=== PATIENT | male | born 1985 | race African-American/Black ===

== ENCOUNTER 2019-05-04 10:52 | Inpatient (IN) | payer OTHER ==
[2019-05-04 12:00] VITALS: BMI 19.3
--- NOTE | 2019-05-04 12:22 | HP ---
COWS - Scale Resting Pulse: 0= DC 80 or Below Sweatin= Chills/Flushing Restless Observation: 1= Difficult to Sit Still Pupil Size: 1= Pupils >than Normal Bone or Joint Aches: 2= Severe Diffuse Aches Runny Nose/ Eye Tearin= Runny Nose/Eyes GI Upset > 30mins: 2= Nausea/Diarrhea Tremor Observation: 2= Slight Tremor Visible Yawning Observation: 1= 1-2x During Session Anxiety or Irritability: 1=Feels Anxious/Irritable Goose Flesh Skin: 3=Piloerection COWS Score: 16 CIWA Score - Admission Criteria [facility]ASAS Guidelines: Admission for Medically Managed Detox: Requires at least one of the followin. CIWA greater than 12 2. Seizures within the past 24 hours 3. Delirium tremens within the past 24 hours 4. Hallucinations within the past 24 hours 5. Acute intervention needed for co occurring medical disorder 6. Acute intervention needed for co occurring psychiatric disorder 7. Severe withdrawal that cannot be handled at a lower level of care (continued vomiting, continued diarrhea, abnormal vital signs) requiring intravenous medication and/or fluids 8. Admission ROS [facility] Chief Complaint: I dont want to use heroin anymore. Allergies/Adverse Reactions: Allergies Allergy/AdvReac Type Severity Reaction Status Date / Time No Known Allergies Allergy Verified 05/04/19 11:45 History of Present Illness: 34 year old male with 5 years dependence on heroin presents for detox. His last treatment was at [facility] in 2019. He denies ever overdosing. Exam Limitations: No Limitations - Ebola screening Have you traveled outside of the country in the last 21 days: No (N) Have you had contact with anyone from an Ebola affected area: No Have you been sick,other than usual withdrawal symptoms: No Do you have a fever: No - Review of Systems Constitutional: Chills, Loss of Appetite, Changes in sleep EENT: reports: Blurred Vision, Nose Congestion Respiratory: reports: No Symptoms reported Cardiac: reports: Lightheadedness GI: reports: Poor Appetite, Poor Fluid Intake, Abdominal cramping : reports: No Symptoms Reported Musculoskeletal: reports: Back Pain, Joint Pain, Muscle Pain, Muscle Weakness Integumentary: reports: Flushing Neuro: reports: Headache, Tremors Endocrine: reports: No Symptoms Reported Hematology: reports: No Symptoms Reported Psychiatric: reports: Anxious, Depressed Other Systems: Reviewed and Negative Patient History - Patient Medical History Hx Anemia: No Hx Asthma: No Hx Chronic Obstructive Pulmonary Disease (COPD): No Hx Cancer: No Hx Cardiac Disorders: No Hx Congestive Heart Failure: No Hx Hypertension: No Hx Hypercholesterolemia: No Hx Pacemaker: No HX Cerebrovascular Accident: No Hx Seizures: No Hx Dementia: No Hx Diabetes: No Hx Gastrointestinal Disorders: No Hx Liver Disease: No Hx Genitourinary Disorders: No Hx Sexually Transmitted Disorders: No Hx Renal Disease (ESRD): No Hx Thyroid Disease: No Hx Human Immunodeficiency Virus (HIV): No Hx Depression: Yes Hx Suicide Attempt: Yes Hx Bipolar Disorder: No Hx Schizophrenia: No - Patient Surgical History Past Surgical History: No - PPD History Previous Implant?: No Documented Results: Negative w/o proof Implanted On Prior [facility] Admission?: No PPD to be Administered?: Yes - Smoking Cessation Smoking history: Current every day smoker Have you smoked in the past 12 months: Yes Aproximately how many cigarettes per day: 10 Hx Chewing Tobacco Use: No Initiated information on smoking cessation: Yes 'Breaking Loose' booklet given: 05/04/19 - Substances abused Heroin Substance route: Inhalation Frequency: Daily Amount used: 4 bags Age of first use: 29 Date of last use: 05/03/19 Crack Substance route: Smoking Amount used: 5 dimes Age of first use: 29 Date of last use: 05/03/19 Admission Physical Exam [facility]HS - Vital Signs Vital Signs: Vital Signs - 24 hr 05/04/19 11:45 Temperature 97.6 F Pulse Rate 80 Respiratory 16 Rate Blood Pressure 113/65 - Physical General Appearance: Yes: Other (sleeping most of the time) HEENTM: Yes: Normocephalic, AVTAR, Pharynx Normal, Nasal Congestion Respiratory: Yes: Chest Non-Tender, Lungs Clear, Normal Breath Sounds Neck: Yes: No masses,lesions,Nodules, Supple Breast: Yes: Breast Exam Deferred Cardiology: Yes: Regular Rhythm, Regular Rate, S1, S2 Abdominal: Yes: Normal Bowel Sounds, Non Tender, Soft Genitourinary: Yes: Within Normal Limits Back: Yes: Normal Inspection Musculoskeletal: Yes: full range of Motion, Muscle weakness Extremities: Yes: Non-Tender, Tremors, Coldness Neurological: Yes: Within Normal Limits Integumentary: Yes: Clammy Lymphatic: Yes: Within Normal Limits - Diagnostic (1) Heroin withdrawal Current Visit: Yes Status: Acute (2) Nicotine dependence with withdrawal Current Visit: Yes Status: Acute Qualifiers: Nicotine product type: cigarettes Qualified Code(s): F17.213 - Nicotine dependence, cigarettes, with withdrawal (3) Cocaine abuse Current Visit: Yes Status: Acute Cleared for Admission S - Detox or Rehab [facility] Level of Care: Medically Managed Detox Regimen/Protocol: Methadone Claeared for Rehab Admission: No Breathalyzer - Breathalyzer Breathalyzer: 0 Urine Drug Screen - Test Device Lot number: [id number] Expiration date: 11/21/20 - Control Is test valid?: Yes - Results Drug screen NEGATIVE: No Urine drug screen results: DEBORA-Cocaine, MOP-Opiates Inpatient Rehab Admission - Rehab Decision to Admit Inpatient rehab admission?: No
[2019-05-04] MEDS ORDERED: IBUPROFEN 400 MG TABLET (FP) PO PRN (12:28)
[2019-05-04] MEDS ORDERED: cloNIDine HCL 0.1 MG TABLET PO PRN (12:28)
[2019-05-04] MEDS ORDERED: NICOTINE POLACRILEX 2 MG GUM BUC PRN (12:28)
[2019-05-04] MEDS ORDERED: MAG HYDROX/AL HYDROX/SIMETH 30 ML UNIT-DOSE CUP PO PRN (12:28)
[2019-05-04] MEDS ORDERED: MENTHOL/PHENOL 1 EACH UD MM PRN (12:28)
[2019-05-04] MEDS ORDERED: MAGNESIUM CITRATE 300 ML BOTTLE PO PRN (12:28)
[2019-05-04] MEDS ORDERED: MAGNESIUM HYDROX 2400MG/30ML ORAL SUSPENSION 30 ML CUP PO PRN (12:28)
[2019-05-04] MEDS ORDERED: ACETAMINOPHEN 325 MG TABLET (FP) PO PRN ×2 (12:28)
[2019-05-04] MEDS ORDERED: METHOCARBAMOL 500 MG TABLET PO PRN (12:28)
[2019-05-04] MEDS ORDERED: BISMUTH SUBSALICYLATE 524 MG/30 ML UD PO PRN (12:28)
--- NOTE | 2019-05-04 13:03 | EKG ---
Test Reason : Blood Pressure : / mmHG Vent. Rate : 069 BPM Atrial Rate : 069 BPM P-R Int : 138 ms QRS Dur : 084 ms QT Int : 416 ms P-R-T Axes : 042 077 041 degrees QTc Int : 445 ms NORMAL SINUS RHYTHM MINIMAL VOLTAGE CRITERIA FOR LVH, MAY BE NORMAL VARIANT BORDERLINE ECG NO PREVIOUS ECGS AVAILABLE Confirmed by FRANCISCO MAYO MD ([id number]) on 05/04/2019 1:03:16 PM Referred By: Confirmed By:FRANCISCO MAYO MD
[2019-05-04] MEDS ORDERED: METHADONE HCL 10 MG TABLET (FOR DETOX USE ONLY) PO ONE (13:15)
[2019-05-04] MEDS: NICOTINE 14 MG/24 HOURS TOPICAL PATCH TD SCH (13:37)
[2019-05-04] MEDS ORDERED: MELATONIN 5 MG TABLETS PO PRN (22:00)
[2019-05-04] MEDS: THIAMINE HCL 100 MG TABLET (FP) PO SCH (22:54)
[2019-05-04] MEDS: QUEtiapine FUMARATE 50 MG TABLET PO SCH (22:54)
[2019-05-05] MEDS ORDERED: METHADONE HCL 5 MG TABLET (FOR DETOX USE ONLY) PO ONE (10:00)
[2019-05-05 10:51] LABS: HEMOGLOBIN 13.3 GM/dL (11.7-16.9); MCH 30.2 pg (25.7-33.7); MCHC 33.3 g/dl (32.0-35.9); MEAN CELL VOLUME 90.7 fl (80-96); MEAN PLT VOLUME 8.4 fl (7.5-11.1); PLATELET COUNT 257 K/MM3 (134-434); RBC 4.41 M/mm3 (4.00-5.60); RDW 13.9 % (11.9-15.9); WHITE BLOOD COUNT 5.5 K/mm3 (4.0-10.0)
[2019-05-05 11:02] LABS: ALBUMIN 2.9 g/dl (3.4-5.0); BILIRUBIN,TOTAL 0.2 mg/dL (0.2-1); BLOOD UREA NITROGEN 12.2 mg/dL (7-18); CALCIUM 8.5 mg/dL (8.5-10.1); CREATININE 0.8 mg/dL (0.55-1.3); POTASSIUM 4.3 mmol/L (3.5-5.1); TOT PROT 5.8 g/dl (6.4-8.2)
[2019-05-05] MEDS: PRENATAL VITAMINS W/ FOLIC ACID TABLET (FP) PO SCH (11:15)
[2019-05-05] MEDS: NICOTINE 14 MG/24 HOURS TOPICAL PATCH TD SCH (11:15)
--- NOTE | 2019-05-05 14:23 | CONSULT ---
[facility] Psychiatric Consult - Data Date of interview: 05/05/19 Psychiatric History: Patient approached while walking on the hallway. Told conventional underwriter:" I don't want to see a psychiarist"
--- NOTE | 2019-05-05 14:37 | PN ---
[facility] COWS - Scale Resting Pulse: 0= NC 80 or Below Sweatin= Chills/Flushing Restless Observation: 0= Sits Still Pupil Size: 0= Normal to Room Light Bone or Joint Aches: 1= Mild Discomfort Runny Nose/ Eye Tearin= Runny Nose/Eyes GI Upset > 30mins: 2= Nausea/Diarrhea Tremor Observation of Outstretched Hands: 2= Slight Tremor Visible Yawning Observation: 0= None Anxiety or Irritability: 2=Irritable/Anxious Goose Flesh Skin: 0=Smooth Skin COWS Score: 10 BHS Progress Note (SOAP) Subjective: Runny nose, feeling tired, body ache, back pain Objective: 05/05/19 14:35 Last Vital Signs Temp Pulse Resp BP Pulse Ox 98.1 F 64 16 117/57 L 05/05/19 06:40 05/05/19 06:40 05/05/19 06:40 05/05/19 06:40 Laboratory Tests 05/05/19 05/05/19 05/05/19 07:15 07:15 07:15 WBC 5.5 RBC 4.41 Hgb 13.3 Hct 40.0 MCV 90.7 MCH 30.2 MCHC 33.3 RDW 13.9 Plt Count 257 MPV 8.4 Sodium 143 Potassium 4.3 Chloride 110 H Carbon Dioxide 27 Anion Gap 5 L BUN 12.2 Creatinine 0.8 Est GFR (CKD-EPI)AfAm 136.99 Est GFR (CKD-EPI)NonAf 118.20 Random Glucose 86 Calcium 8.5 Total Bilirubin 0.2 AST 63 H ALT 93 H Alkaline Phosphatase 82 Total Protein 5.8 L Albumin 2.9 L RPR Titer Nonreactive Labs reviewed: albumin 2.9 (low) Assessment: 05/05/19 14:36 Withdrawal sxs Hypoalbuminemia noted Plan: Continue detox Encouraged PO water intake Hypoalbuminemia: encouraged diet, Ensure 1 can PO TID
[2019-05-05] MEDS: QUEtiapine FUMARATE 50 MG TABLET PO SCH (22:07)
[2019-05-05] MEDS: THIAMINE HCL 100 MG TABLET (FP) PO SCH (22:07)
[2019-05-06 09:10] VITALS: BP 119/59; PULSE 79; TEMP 97.9
[2019-05-06] MEDS ORDERED: METHADONE HCL 10 MG TABLET (FOR DETOX USE ONLY) PO ONE (10:00)
--- NOTE | 2019-05-06 10:28 | PN ---
S CIWA - CIWA Score Nausea/Vomitin-Mild Nausea/No Vomiting Muscle Tremors: 1-None Visible, but [place] Anxiety: 1-Mildly Anxious Agitation: 1-Slight > Activity Paroxysmal Sweats: No Perspiration Orientation: 0-Oriented Tacttile Disturbances: 1-Very Mild Itch/Numbness Auditory Disturbances: 0-None Visual Disturbances: 0-None Headache: 1-Very Mild CIWA-Ar Total Score: 6 BHS Progress Note (SOAP) Subjective: alert,irritable,anxious,interrupted,pain in the body Objective: 05/06/19 10:25 Vital Signs Temperature 97.9 F 05/06/19 09:09 Pulse Rate 79 05/06/19 09:09 Respiratory Rate 16 05/06/19 09:09 Blood Pressure 119/59 L 05/06/19 09:09 O2 Sat by Pulse Oximetry (%) Assessment: 05/06/19 10:26 patient did not want methadone, i stop showed patient is on Suboxone 8 mgs/2 mgs bid last filed on 04/12/19 for 15 days patient agreed to be on subxone 8mg/2 mgs Sl bid and to continue care in Rehab Plan: stable for dischaRGED FROM DETOX,DID NOT WAnt to methadone detox,continue further level of care in rehab ,to continue suboxone 8mg/2mg sl bid
[2019-05-06] MEDS ORDERED: BUPRENORPHINE/NALOXONE 8 MG/2 MG FILM PACKET SL ONE (10:30)
--- NOTE | 2019-05-06 10:43 | DS ---
[facility] Detox Discharge Summary Admission Date: 05/04/19 Discharge Date: 05/06/19 - History Present History: Cocaine Dependence, Opioid Dependence Additional Comments: patient did not want to be on methadone detox,continue suboxone maintenance 8 mgs/2mg film bid and continue further level of care in rehab, stable for discharge from detox Pertinent Past History: suboxone maintenance - Physical Exam Results Vital Signs: Vital Signs Temperature 97.9 F 05/06/19 09:09 Pulse Rate 79 05/06/19 09:09 Respiratory Rate 16 05/06/19 09:09 Blood Pressure 119/59 L 05/06/19 09:09 O2 Sat by Pulse Oximetry (%) Pertinent Admission Physical Exam Findings: withdrawal signs and symptom Vital Signs Temperature 97.9 F 05/06/19 09:09 Pulse Rate 79 05/06/19 09:09 Respiratory Rate 16 05/06/19 09:09 Blood Pressure 119/59 L 05/06/19 09:09 O2 Sat by Pulse Oximetry (%) Laboratory Last Values WBC 5.5 K/mm3 (4.0-10.0) 05/05/19 07:15 RBC 4.41 M/mm3 (4.00-5.60) 05/05/19 07:15 Hgb 13.3 GM/dL (11.7-16.9) 05/05/19 07:15 Hct 40.0 % (35.4-49) 05/05/19 07:15 MCV 90.7 fl (80-96) 05/05/19 07:15 MCH 30.2 pg (25.7-33.7) 05/05/19 07:15 MCHC 33.3 g/dl (32.0-35.9) 05/05/19 07:15 RDW 13.9 % (11.9-15.9) 05/05/19 07:15 Plt Count 257 K/MM3 (134-434) 05/05/19 07:15 MPV 8.4 fl (7.5-11.1) 05/05/19 07:15 Sodium 143 mmol/L (136-145) 05/05/19 07:15 Potassium 4.3 mmol/L (3.5-5.1) 05/05/19 07:15 Chloride 110 mmol/L (98-107) H 05/05/19 07:15 Carbon Dioxide 27 mmol/L (21-32) 05/05/19 07:15 Anion Gap 5 MMOL/L (8-16) L 05/05/19 07:15 BUN 12.2 mg/dL (7-18) 05/05/19 07:15 Creatinine 0.8 mg/dL (0.55-1.3) 05/05/19 07:15 Est GFR (CKD-EPI)AfAm 136.99 05/05/19 07:15 Est GFR (CKD-EPI)NonAf 118.20 05/05/19 07:15 Random Glucose 86 mg/dL (74-106) 05/05/19 07:15 Calcium 8.5 mg/dL (8.5-10.1) 05/05/19 07:15 Total Bilirubin 0.2 mg/dL (0.2-1) 05/05/19 07:15 AST 63 U/L (15-37) H 05/05/19 07:15 ALT 93 U/L (13-61) H 05/05/19 07:15 Alkaline Phosphatase 82 U/L (45-117) 05/05/19 07:15 Total Protein 5.8 g/dl (6.4-8.2) L 05/05/19 07:15 Albumin 2.9 g/dl (3.4-5.0) L 05/05/19 07:15 RPR Titer Nonreactive (NONREACTIVE) 05/05/19 07:15 - Treatment Hospital Course: Detox Protocol Followed, Rehab Referral Accepted Patient has Accepted [facility] - Medication Discharge Medications: Ambulatory Orders Quetiapine Fumarate [Seroquel -] 50 mg PO HS 05/04/19 - Diagnosis (1) Cocaine abuse Current Visit: Yes Status: Acute (2) Nicotine dependence with withdrawal Current Visit: Yes Status: Acute Qualifiers: Nicotine product type: cigarettes Qualified Code(s): F17.213 - Nicotine dependence, cigarettes, with withdrawal (3) Encounter for monitoring Suboxone maintenance therapy Current Visit: Yes Status: Acute (4) Dehydration after exertion Current Visit: Yes Status: Acute - AMA Did Patient Leave Against Medical Advice: No
[2019-05-06] MEDS: NICOTINE 14 MG/24 HOURS TOPICAL PATCH TD SCH (11:07)
[2019-05-06] MEDS: PRENATAL VITAMINS W/ FOLIC ACID TABLET (FP) PO SCH (11:10)
[2019-05-06] MEDS ORDERED: BUPRENORPHINE/NALOXONE 8 MG/2 MG FILM PACKET SL SCH (22:00)
[2019-05-07] MEDS ORDERED: METHADONE HCL 5 MG TABLET (FOR DETOX USE ONLY) PO ONE (06:00)
== END 2019-05-06 12:40 | disposition other institution (70) | DRG 773 ==
LOC: YASAS 10:52 → Y6N 13:01
PROVIDERS: ADMIT Allergy & Immunology; ATTEND Allergy & Immunology
PROC: HZ2ZZZZ Detoxification Services for Substance Abuse Treatment (ICD-10-PCS; principal; 2019-05-04)
DX: F11.23 Opioid dependence with withdrawal (principal); F14.10 Cocaine abuse, uncomplicated; F17.213 Nicotine dependence, cigarettes, with withdrawal; E86.0 Dehydration; R77.0 Abnormality of albumin
CPT/HCPCS: 36415; 80053; 85027; 86593; 93005; 93010

== ENCOUNTER 2019-05-06 12:43 | Inpatient (IN) | payer OTHER ==
--- NOTE | 2019-05-06 15:13 | HP ---
[facility] Rehab Assess/Revision - Admission History Admitted to Rehab from: [address] - Vital signs Vital Signs: Vital Signs Period Temp Pulse Resp BP Sys/Mooney Pulse Ox Last 24 Hr 98 F 103 18 120/77 - Findings Detox History & Physical reviewed: Yes Concur with findings: Yes Inpatient Rehab Admission - Rehab Decision to Admit Inpatient rehab admission?: Yes - Initial Determination Are CD services needed?: Yes Free of communicable disease: Yes Not in need of hospitalization: Yes - Rehab Admission Criteria Previous failed treatment: Yes Poor recovery environment: Yes Comorbidities: No Lacks judgement: Yes Patient is meeting Inpatient Rehab admission criteria:: Yes
[2019-05-06] MEDS ORDERED: MENTHOL/PHENOL 1 EACH UD MM PRN (15:15)
[2019-05-06] MEDS ORDERED: P-EPHED 60MG/TRIPROLIDI 2.5MG TABLET PO PRN (15:15)
[2019-05-06] MEDS ORDERED: MAG HYDROX/AL HYDROX/SIMETH 30 ML UNIT-DOSE CUP PO PRN (15:15)
[2019-05-06] MEDS ORDERED: IBUPROFEN 400 MG TABLET (FP) PO PRN (15:15)
[2019-05-06] MEDS ORDERED: guaiFENesin 200 MG/10 ML 10 ML UNIT-DOSE CUPS PO PRN (15:15)
[2019-05-06] MEDS ORDERED: ACETAMINOPHEN 325 MG TABLET (FP) PO PRN (15:15)
[2019-05-06] MEDS ORDERED: LOPERAMIDE HCL 2 MG CAPSULE PO PRN (15:15)
[2019-05-06] MEDS ORDERED: MAGNESIUM HYDROX 2400MG/30ML ORAL SUSPENSION 30 ML CUP PO PRN (15:15)
[2019-05-06] MEDS ORDERED: MAGNESIUM CITRATE 300 ML BOTTLE PO PRN (15:15)
--- NOTE | 2019-05-06 15:34 | PN ---
[facility] Progress Note Note: Rx Written Rx Dispensed Drug Quantity Days Supply Prescriber Name 04/12/2019 04/12/2019 buprenorphine-naloxone 8-2 mg sl film 30 15 Cecil Shell MD 04/05/2019 04/05/2019 buprenorphine-naloxone 8-2 mg sl film 14 7 Cecil Shell MD Patient is 34 year old male with hx of opiod dependence. Transferred from [address] [place] [address] for re[address] services. On Suboxone 8mg sl bid which was started on today. Patient is alert and oriented x 3, in no acute distress. He denies any medical complaints and si/hi. A/P: opiod dependence Suboxone 8-2mg sl bid continue admitted to rehab services
[2019-05-06] MEDS ORDERED: COLLOIDAL OATMEAL 1 BAR EACH TP PRN (15:35)
[2019-05-06] MEDS: THIAMINE HCL 100 MG TABLET (FP) PO SCH (21:13)
[2019-05-06] MEDS: MINERAL OIL/PETROLAT/WATER TOPICAL CREAM 113 GM JAR TP SCH (21:13)
[2019-05-06] MEDS: BUPRENORPHINE/NALOXONE 8 MG/2 MG FILM PACKET SL SCH (21:14)
[2019-05-06] MEDS ORDERED: MELATONIN 5 MG TABLETS PO PRN (22:00)
[2019-05-07] MEDS: hydrOXYzine PAMOATE 50 MG CAPSULE (FP) PO PRN ×2 (03:05→10:35)
[2019-05-07] MEDS: BUPRENORPHINE/NALOXONE 8 MG/2 MG FILM PACKET SL SCH ×2 (10:35→21:27)
[2019-05-07] MEDS: PRENATAL VITAMINS W/ FOLIC ACID TABLET (FP) PO SCH (10:35)
[2019-05-07] MEDS: MINERAL OIL/PETROLAT/WATER TOPICAL CREAM 113 GM JAR TP SCH ×2 (10:35→21:26)
--- NOTE | 2019-05-07 10:46 | PN ---
S Progress Note Note: Pt seen today for seroquel med- pt was transferred here from detox but seroquel prn for sleep was not renewed. Renewed now for 2 doses: consult done
[2019-05-07] MEDS: THIAMINE HCL 100 MG TABLET (FP) PO SCH (21:25)
[2019-05-07] MEDS: QUEtiapine FUMARATE 50 MG TABLET PO PRN (21:27)
[2019-05-08] MEDS: PRENATAL VITAMINS W/ FOLIC ACID TABLET (FP) PO SCH (09:54)
[2019-05-08] MEDS: BUPRENORPHINE/NALOXONE 8 MG/2 MG FILM PACKET SL SCH ×2 (09:54→21:08)
[2019-05-08] MEDS: MINERAL OIL/PETROLAT/WATER TOPICAL CREAM 113 GM JAR TP SCH ×2 (09:55→21:07)
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
[2019-05-08] MEDS: THIAMINE HCL 100 MG TABLET (FP) PO SCH (21:07)
[2019-05-08] MEDS: QUEtiapine FUMARATE 50 MG TABLET PO PRN (21:09)
[2019-05-09] MEDS: hydrOXYzine PAMOATE 50 MG CAPSULE (FP) PO PRN (06:04)
[2019-05-09] MEDS ORDERED: QUEtiapine FUMARATE 50 MG TABLET PO PRN (06:31)
[2019-05-09 06:50] VITALS: TEMP 97.8
[2019-05-09] MEDS: MINERAL OIL/PETROLAT/WATER TOPICAL CREAM 113 GM JAR TP SCH (10:28)
[2019-05-09] MEDS: BUPRENORPHINE/NALOXONE 8 MG/2 MG FILM PACKET SL SCH (10:28)
[2019-05-09] MEDS: PRENATAL VITAMINS W/ FOLIC ACID TABLET (FP) PO SCH (10:28)
[2019-05-09 10:35] VITALS: BP 110/69; PULSE 88
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
== END 2019-05-09 17:24 | disposition left against medical advice (07) | DRG 770 ==
LOC: YASAS 12:43 → Y3W 12:44
PROVIDERS: ADMIT Neuromusculoskeletal Medicine & OMM; ATTEND Neuromusculoskeletal Medicine & OMM
PROC: HZ42ZZZ Group Counseling for Substance Abuse Treatment, Cognitive-Behavioral (ICD-10-PCS; principal; 2019-05-06)
DX: F11.20 Opioid dependence, uncomplicated (principal); F14.20 Cocaine dependence, uncomplicated; F17.210 Nicotine dependence, cigarettes, uncomplicated; F19.282 Other psychoactive substance dependence with psychoactive substance-induced sleep disorder; F31.9 Bipolar disorder, unspecified; Z51.81 Encounter for therapeutic drug level monitoring